=== PATIENT | female | born 1950 | race Caucasian/White ===

== ENCOUNTER → 2022-06-30 | Outpatient (CLI) | payer MEDICARE | END | disposition home or self-care (01) | LOC: LAB SHORT 12:47 → LAB 12:47 | DX: D48.5 Neoplasm of uncertain behavior of skin (principal) | CPT/HCPCS: 88305 ==

== ENCOUNTER → 2023-08-31 | Outpatient (CLI) | payer MEDICARE, OTHER | LOC: LAB SHORT 14:40 → PLD 14:40 | DX: L56.9 Acute skin change due to ultraviolet radiation, unspecified (principal); B88.0 Other acariasis | CPT/HCPCS: 88305 ==